=== PATIENT | male | born 1965 | race Caucasian/White ===

== ENCOUNTER 2025-07-07 08:24 | Day surgery (SDC) | payer BC, SELFPAY ==
[2025-07-07] VITALS (17 sets, daily range): BP systolic 113–149; BP diastolic 50–88; PULSE 60–82; RESP 12–18; TEMP 36.2–36.6; O2SAT 95–99; BMI 24.8
[2025-07-07] MEDS: Lactated Ringers 1,000 ML 80 ML IV (09:04)
--- NOTE | 2025-07-07 09:19 | W.PM.DSUDISC ---
Date of service: 07/07/25 Discharge Plan Disposition Patient Disposition: Home Condition: Stable Discharge Details Attending Provider: Silvana Saini Primary Care Provider: Chuy Dennis Home Meds and New Rx's Prescriptions: New hydrocodone-acetaminophen 5-325 mg tablet 1 tab PO Q6H PRN (Reason: pain) Qty: 20 0RF Continued omega 1-viu-gvt-fish oil [Fish Oil] 300-1,000 mg capsule 1 cap PO DAILY Centrum Silver Ultra Men's [id number] mcg tablet 1 tab PO DAILY aspirin 81 mg capsule 81 mg PO DAILY Discharge Instructions Additional Instructions: Additional Instructions: Shower in 24 hours. Wash gently over skin glue with soapy hands, rinse, pat dry. Don't peel glue or submerge incisions under water. Do not clean the glue with rubbing alcohol or any solvents beyond your regular soap/body wash and water. The glue will start to come off on its own in about 2 weeks. Ok to walk, climb stairs, and resume normal activities of daily living. Do not lift/push/pull more than 20lb for 4 weeks. Do not exercise until cleared by surgeon in office. Swelling and bruising in the groin and scrotum is normal and expected. You may even notice an eggplant-like change to the scrotum on the side(s) of the repair. This is harmless and will improve over time. Elevate the scrotum with washcloth rolls while laying down, or gently ice the swollen areas for 2-4 minutes at a time if desired for comfort. Monitor yourself for constipation during recovery. Add a stool softener or laxative if no BM within 36 hours. Call or return for fever or incisional problems. Stand Alone Forms: Portal Information DS: Diagnosis Discharge Diagnosis (1) Bilateral inguinal hernia without obstruction or gangrene: Status: Acute
--- NOTE | 2025-07-07 10:03 | ANES.PREOP_ITS ---
General Info Date of Service Date Performed: 07/07/25 Height: 6 ft 4 in Weight: 92.6 kg Body Mass Index (BMI): 24.8 Surgical Procedure: Operation Date: 07/07/25 09:40 Proposed Procedure Side Surgeon p Hernia Inguinal Laparoscopic w/Mesh Bilateral Silvana Saini MD Meds Allergies and Home Medications Allergies Allergy/AdvReac Type Severity Reaction Status Date / Time No Known Allergies Allergy Verified 07/04/25 12:16 Home Medication ?Medication ?Instructions ?Recorded olxntrto-lr-wwfiz 300 mcg-K 60 1 tab PO DAILY 06/25/25 mcg-lycop 600 mcg-lutein 300 mcg tablet (Centrum Silver Ultra Men's) omega 9-iyu-oyy-fish oil 300 1 cap PO DAILY 06/25/25 mg-1,000 mg capsule (Fish Oil) aspirin 81 mg capsule 81 mg PO DAILY 07/04/25 hydrocodone 5 mg-acetaminophen 325 1 tab PO Q6H PRN pa in #20 tabs 07/07/25 mg tablet Current Visit Medications: Current Medications Generic Name Dose Route Start Last Admin Trade Name Freq PRN Reason Stop Dose Admin Ringer's Solution 1,000 mls @ 80 mls/hr 07/07/25 06:00 07/07/25 09:04 IV 08/03/25 23:59 80 mls/hr INFUSION GABBY Administration Cefazolin Sodium/Dextrose 2 gm in 50 mls @ 100 mls/hr 07/07/25 06:00 Ancef Duplex IVPB 08/03/25 23:59 PREOP GABBY Sodium Chloride 0 ml 07/07/25 06:00 Normal Saline Flush 10 Ml Syr IV 08/03/25 23:59 PRN PRN Sodium Chloride 0 ml 07/07/25 06:00 Normal Saline 10 Ml Vial IJ 08/03/25 23:59 DIRECTED PRN Sterile Water 0 ml 07/07/25 06:00 Water,Injection,Sterile 10 Ml Vial IJ 08/03/25 23:59 DIRECTED PRN PFSH Active Problems Active Problems: Problem Status Onset Code Bilateral inguinal hernia without obstruction or gangrene Acute K40.20 Left inguinal hernia Acute K40.90 Medical History Medical History Back injury Surgical History Surgical History Hx of tonsillectomy Tobacco Smoking/Tobacco Use Status: Former Tobacco Use Alcohol Alcohol Intake: never Substance Use Substance use: Never Substance use type: does not use Vital Signs and Lab Results Vital Signs Most Recent Vital Signs in EMR: Most Recent Vital Signs Temp Pulse Resp BP Pulse Ox 36.2 C L 64 16 149/88 H 98 07/07/25 08:46 07/07/25 08:46 07/07/25 08:46 07/07/25 08:46 07/07/25 08:46 Anesthesia Assessment and Plan Anesthesia History Personal History: No History of Anesthesia Complications Family History: No Family History of Anesthesia Complications Exercise Tolerance Exercise Tolerance: Metabolic Equivalents>4 Pertinent Negatives Pertinent Negatives: No Symptoms of GERD Cardiac & Pulmonary Exam Cardiac Exam: Normal S1/S2 Heart Sounds Pulmonary Exam: Clear Bilateral Breath Sounds Implantable Cardiac Device Does patient have a Pacemaker or an ICD?: No Airway Exam Known Difficult Airway: No Mallampati Class: 2 Mouth Opening: Normal (> 3cm) Thyromental Distance: Greater than 3 cm Neck Range of Motion: Full ROM Neck Circumference: Normal Teeth Condition: Normal Dentition ASA Classification ASA Score: ASA 2 Emergency Case?: No NPO Status NPO Status: NPO Clears >2 hours, Solids >8 hours Anesthesia Plan Resuscitation Status: Full Code Anesthesia Technique: General Anesthesia Airway Planned: Endotracheal Tube Monitors Used: Standard Monitors
--- NOTE | 2025-07-07 11:44 | ROE_ITS ---
Operative Note Operative Note Refer to Anesthesia Record Procedure Description: PRE-OP DIAGNOSIS: Bilateral inguinal hernia POST-OP DIAGNOSIS: Bilateral inguinal hernia - left side incarcerated PROCEDURE: Laparoscopic repair of incarcerated left inguinal hernia and right inguinal hernia with mesh SURGEON: Silvana Saini VOCATIONAL TRAINING TEACHER: Luis M Henderson ANESTHESIA TYPE: Local By Surgeon and General LMA/ETT (Refer to Anesthesia Record) ESTIMATED BLOOD LOSS: 40 PATHOLOGY: none sent COMPLICATIONS: None Patient was transported to: PACU Patient's condition: stable Implants: Left and right sided Bard 3DMax MID mesh. Procedure Description: This is a 59yo M with a symptomatic left inguinal hernia and an asymptomatic right inguinal hernia. He was seen in the office and scheduled for laparoscopic repair of bilateral inguinal hernia with mesh. Informed consent was confirmed, see office note for details of prior discussion of the procedure. Risks, benefits, alternatives, and expectations were reviewed including risks of chronic pain, bleeding, infection, mesh infection and recurrence. The patient asked good questions and verbalized understanding of the plan. He was taken to the operating room The operating room he was placed supine on the operating table. SCDs were placed and all pressure points were padded appropriately. General anesthesia was induced. A goetz catheter was placed. The abdomen was clipped prepped and draped in the usual sterile fashion. Timeout was performed. Local anesthetic was infiltrated into the skin and subcutaneous tissues at each port access site. A midline vertical incision was made below the umbilicus and the subcutaneous tissue was dissected down to the level of the fascia using cautery. The fascia was retracted to the left of the midline. The anterior rectus sheath was opened sharply and muscle-splitting technique was used to retract the muscle fibers over the peritoneum. A peon clamp was used to access the preperitoneal space down to the pubic bone. A Spacemaker balloon was inserted and directed at the pubic bone. Spacemaker balloon was inflated and deflated and the port advanced into the preperitoneal space. Insufflation to 15 mmHg was accomplished with carbon dioxide gas. Laparoscopy revealed no injury to the underlying structures. Two 5 mm ports were placed in the midline under direct visualization. The left side was approached first for repair. The preperitoneal space was examined and anatomical landmarks identified. The pubic bone was cleared. The lateral wall was cleared. The hernia sac was noted to be incarcerated through the inguinal canal high along the cord structures. There was a second hernia through the direct space. The direct space sac reduced easily with graspers and traction. The indirect sac was challenging and was carefully dissected bluntly from the cord structures, while also being gently reduced from the inguinal canal. It was and pulled low and posterior in the preperitoneal space. There were dense adhesions of the sac to the cord that were taken down. Cremasteric fibers had to be ligated with LigaSure device to aid in reduction of the large redundant sac. A large sized 3Dmax MID mesh was selected for the repair. The mesh was introduced to the preperitoneal space and positioned over the direct and indirect spaces. It was tacked to the iliopubic tract at 3 points. There was adequate coverage and generous overlap of the direct and indirect space. There was no evidence of obturator or femoral hernia from this view. The right side was approached next. The pubic bone to the right of the midline was cleared. The lateral wall was cleared. The hernia sac was noted to be through the direct space medial to the inferior epigastric vessels. There was an indirect sac present along the cord as well. There was no evidence of femoral or obturator hernia present from this view. The hernia sac was dissected bluntly from the cord structures and reduced low and posterior. The direct defect was larger, and it was easily reduced with traction and blunt dissection. A large sized 3Dmax MID mesh was selected for the repair on this side as well. The mesh was introduced to the preperitoneal space and positioned over the direct and indirect spaces. It was tacked to the iliopubic tract at 3 points. There was adequate coverage of the direct and indirect space. The preperitoneal space was desufflated under direct visualization and the two meshes were noted to stay flat at the repair sites. The peritoneum was opened at the umbilicus with metzenbaum scissors and pneumoperitoneum that had been introduced during hernia repair was released. The anterior rectus sheath was reapproximated with an 0 Vicryl suture in running fashion. The skin at each port site was closed with simple interrupted subcuticular 4-0 Monocryl. The skin was washed and dried and skin glue was applied to the incisions. All sponge and instrument counts were correct at the end the case. Goetz catheter was removed. The patient tolerated the procedure well. He extubated in the operating room and transferred to the recovery room in stable condition. There were no complications. Date of Procedure: 07/07/25
[2025-07-07] MEDS: ceFAZolin 2 GM/50 ML BAG IVPB (11:58)
[2025-07-07] MEDS: Bupivacaine 0.25% Pres-Free W/EPI 30 ML VIAL (12:24)
--- NOTE | 2025-07-07 15:01 | W.ANESPOSTOP ---
Postoperative Evaluation Date, Time and Location Date Performed: 07/07/25 Time Performed: 15:02 Patient Location: PACU Vital Signs Most Recent Imported Vital Signs: Most Recent Vital Signs Temp Pulse Resp BP Pulse Ox 36.4 C L 67 16 122/60 95 07/07/25 14:54 07/07/25 14:54 07/07/25 14:54 07/07/25 14:54 07/07/25 14:54 Pain Score Most Recent Pain Score: Most Recent Pain Score Pain Level 1 07/07/25 14:47 Assessment Mental Status: Awake (Alert & Oriented to Patient Baseline) Airway and Respiratory Function: Patent airway with normal (patient baseline) respiratory exam Cardiovascular Function: Hemodynamically Stable Hydration Status: Adequately Hydrated Nausea & Vomiting: No Nausea or Vomiting Pain: Pain is tolerable per patient Peripheral Nerve Block: Patient did not receive a nerve block
[2025-07-07] MEDS: oxyCODONE 5 MG TAB PO (16:19)
== END 2025-07-07 16:32 | disposition home or self-care (01) ==
PROVIDERS: Visit Provider Surgery
PROC: (CPT 49650; principal; 2025-07-07 09:30)
DX: K40.20 Bilateral inguinal hernia, without obstruction or gangrene, not specified as recurrent (principal)
CPT/HCPCS: 49650; C1781; J0131; J0690; J1100; J2003; J2250; J2405; J2704; J3475